=== PATIENT | female | born 1970 | race Hispanic/Latino ===

== ENCOUNTER → 2021-06-23 | Day surgery (SDC) | payer BC | LOC: CSHSDC/OP 09:27 | PROVIDERS: ATTEND Internal Medicine | DX: U07.1 COVID-19 (principal); Z23 Encounter for immunization | CPT/HCPCS: J3490; Q0244 ==

== ENCOUNTER 2025-06-15 08:21 | Outpatient (CLI) | payer OTHER | END 2025-06-15 08:22 | disposition home or self-care (01) | LOC: CSHCT 08:21 | PROVIDERS: ATTEND Internal Medicine | DX: Z82.49 Family history of ischemic heart disease and other diseases of the circulatory system (principal); I25.10 Atherosclerotic heart disease of native coronary artery without angina pectoris | CPT/HCPCS: 75571 ==